=== PATIENT | female | born 1985 | race Caucasian/White ===

== ENCOUNTER 2016-10-26 03:49 | Emergency (ER) | payer BC ==
[~2016-10-26] VITALS: Ht 172.7 cm; Wt 63.5 kg
[~2016-10-26 03:49] MED LIST: ONDA4TAB46 PO; PRENTAB26 PO
[2016-10-26 03:51] VITALS: TEMP 36.5; Ht 172.7 cm; Wt 63.5 kg
[2016-10-26] MEDS ORDERED: ONDANSETRON INJ 2 MG/ML 2 ML VIAL IV STA ×2 (04:13→06:56)
[2016-10-26] MEDS ORDERED: SODIUM CHLORIDE 0.9% 1000ML 1,000 ML IV ONE ×2 (04:15)
[2016-10-26 04:45] LABS: BASO % 0.2 %; BASO ABS # 0.03 K/uL (0-0.2); COMPLETE YES; EOS % 0.7 %; HEMATOCRIT 40.6 % (37-47); IG% 0.2 %; LYMPH % 4.1 %; LYMPH ABS # 0.52 K/uL (1.2-3.4); MEAN CELL VOLUME 86.2 fL (80-100); MEAN CORPUSCULAR HEMOGLOBIN 31.4 pg (25-34); MEAN CORPUSCULAR HGB CONC 36.5 g/dl (32-36); MEAN PLATELET VOLUME 10.7 fL (7.4-10.4); MONO % 2.8 %; PLATELET COUNT 263 K/uL (130-400); RED BLOOD COUNT 4.71 M/uL (4.2-5.4); WHITE BLOOD COUNT 12.74 K/uL (4.8-10.8)
[2016-10-26 04:58] LABS: URINE APPEARANCE CLOUDY (CLEAR); URINE BILIRUBIN NEG (NEG); URINE COLOR DK YELLOW; URINE EPITHELIAL CELL AUTO >30 /lpf (0-5); URINE NITRITE NEG (NEG); URINE PH 5.5 (4.5-7.5); URINE SPECIFIC GRAVITY 1.025 (1.000-1.030); UROBILINOGEN NEG (NEG); ZZUR CULT IF INDIC CLEAN CATCH YES
[2016-10-26 05:05] LABS: BUN/CREATININE RATIO 13.9 (10-20); CREATININE 0.74 mg/dl (0.60-1.20); POTASSIUM 3.7 mmol/L (3.5-5.1)
[2016-10-26 05:05] LABS: MANUAL MICROSCOPIC REQUIRED? NO; REVIEW REQ? YES
[2016-10-26 05:27] LABS: URINE MUCUS PRESENT (NONE PRSENT)
[2016-10-26] MEDS ORDERED: ONDANSETRON HOME PACK 4MG OD TAB PO ONE (07:00)
[2016-10-26] MEDS ORDERED: ONDA4TAB10 SL (07:02)
[2016-10-26 07:05] VITALS: BP 90/44; PULSE 80; O2SAT 98
--- NOTE | 2016-10-26 21:26 | EMERGENCY ROOM VISIT NOTE ---
History First contact with patient: 04:02 Chief Complaint: DIARRHEA Stated Complaint: DIARRHEA,THROWING UP-14 WKS Nursing Triage Summary: c/o n/v and diarrhea . diarrhea at noon and n/v at 2300. History of Present Illness The patient is a 31 year old female who presents to the Emergency Room with complaints of nausea and vomiting for the past 5 hours. The patient is 14 weeks , and the has been uncomplicated to this point. The patient has been with several intermittent episodes of diarrhea for about the past 12 hours. She is having some epigastric abdominal discomfort that does improve with vomiting. She is not having lower abdominal pain, vaginal drainage , discharge, or bleeding. No lightheadedness or dizziness. She has not taken anything [id number] for her symptoms. She rates her discomfort a 5/10. This is her third with one healthy delivery and one spontaneous miscarriage. Review of Systems More than 10 systems were reviewed and otherwise negative with the exception of history of present illness. Past Medical/Surgical History Medical Problems: (1) Miscarriage Family History FH: cancer Social History Smoking Status: Never Smoker Alcohol Use: occasionally Drug Use: none Marital Status: Occupation Status: employed Current/Historical Medications Scheduled Multivit/Min/Iron/Fol Ac/Pren ( Vitamin), 1 TAB PO DAILY Ondasetron Odt (Zofran Odt), 4 MG SL Q6H Allergies Coded Allergies: Penicillins (Unverified Allergy, Unknown, NAUSEA/ VOMITING, 10/26/16) Uncoded Allergies: SEAFOOD (Adverse Reaction, Mild, GI SYMPTOMS, 10/26/14) Physical Exam Vital Signs Date Time Temp Pulse Resp B/P Pulse Ox O2 Delivery O2 Flow Rate FiO2 10/26/16 07:05 80 16 90/44 98 Room Air 10/26/16 05:31 88 18 94/52 98 Room Air 10/26/16 03:51 36.5 108 20 124/83 98 Room Air Pain Rating (0-10): 0 Physical Exam VITALS: Vitals are noted on the nurse's note and reviewed by myself. Vital signs stable. GENERAL: Well-developed, well-nourished, white female, who is in no acute distress and resting comfortably. Patient is cooperative with the examination. HEAD: Normocephalic atraumatic. MOUTH: Mucous membranes dry. Tonsils are not enlarged. Pharynx without erythema, blood, or exudate. Uvula midline. Airway patent. NECK: Supple without nuchal rigidity. No lymphadenopathy. No thyromegaly. Cervical spine is nontender. HEART: Regular rate and rhythm without murmurs gallops or rubs. LUNGS: Clear to auscultation bilaterally without wheezes, rales or rhonchi. No retractions or accessory muscle use. ABDOMEN: Positive normal bowel sounds x 4. Soft, nontender, without masses or organomegaly. No guarding or rebound tenderness. MUSCULOSKELETAL: No muscle atrophy, erythema, or edema noted. Full range of motion without joint tenderness in all extremities. Medical Decision & Procedures Laboratory Results 10/26/16 04:08 Red Blood Count 4.71, Mean Corpuscular Volume 86.2, Mean Corpuscular Hemoglobin 31.4, Mean Corpuscular Hemoglobin Concent 36.5, Mean Platelet Volume 10.7, Neutrophils (%) (Auto) 92.0, Lymphocytes (%) (Auto) 4.1, Monocytes (%) (Auto) 2.8, Eosinophils (%) (Auto) 0.7, Basophils (%) (Auto) 0.2, Neutrophils # (Auto) 11.71, Lymphocytes # (Auto) 0.52, Monocytes # (Auto) 0.36, Eosinophils # (Auto) 0.09, Basophils # (Auto) 0.03 10/26/16 04:08 Test 10/26/16 04:08 10/26/16 04:44 White Blood Count 12.74 K/uL (4.8-10.8) Red Blood Count 4.71 M/uL (4.2-5.4) Hemoglobin 14.8 g/dL (12.0-16.0) Hematocrit 40.6 % (37-47) Mean Corpuscular Volume 86.2 fL (80-100) Mean Corpuscular Hemoglobin 31.4 pg (25-34) Mean Corpuscular Hemoglobin Concent 36.5 g/dl (32-36) Platelet Count 263 K/uL (130-400) Mean Platelet Volume 10.7 fL (7.4-10.4) Neutrophils (%) (Auto) 92.0 % Lymphocytes (%) (Auto) 4.1 % Monocytes (%) (Auto) 2.8 % Eosinophils (%) (Auto) 0.7 % Basophils (%) (Auto) 0.2 % Neutrophils # (Auto) 11.71 K/uL (1.4-6.5) Lymphocytes # (Auto) 0.52 K/uL (1.2-3.4) Monocytes # (Auto) 0.36 K/uL (0.11-0.59) Eosinophils # (Auto) 0.09 K/uL (0-0.5) Basophils # (Auto) 0.03 K/uL (0-0.2) RDW Standard Deviation 39.6 fL (36.4-46.3) RDW Coefficient of Variation 12.5 % (11.5-14.5) Immature Granulocyte % (Auto) 0.2 % Immature Granulocyte # (Auto) 0.03 K/uL (0.00-0.02) Anion Gap 10.0 mmol/L (3-11) Est Creatinine Clear Calc Drug Dose 109.4 ml/min Estimated GFR () 124.2 Estimated GFR (Non- 107.2 BUN/Creatinine Ratio 13.9 (10-20) Calcium Level 9.0 mg/dl (8.5-10.1) Total Bilirubin 0.6 mg/dl (0.2-1) Aspartate Amino Transf (AST/SGOT) 9 U/L (15-37) Alanine Aminotransferase (ALT/SGPT) 12 U/L (12-78) Alkaline Phosphatase 39 U/L (45-117) Total Protein 7.7 gm/dl (6.4-8.2) Albumin 3.9 gm/dl (3.4-5.0) Globulin 3.8 gm/dl (2.5-4.0) Albumin/Globulin Ratio 1.0 (0.9-2) Lipase 179 U/L (73-393) Urine Color DK YELLOW Urine Appearance CLOUDY (CLEAR) Urine pH 5.5 (4.5-7.5) Urine Specific [place] 1.025 (1.000-1.030) Urine Protein NEG (NEG) Urine Glucose (UA) NEG (NEG) Urine Ketones TRACE (NEG) Urine Occult Blood NEG (NEG) Urine Nitrite NEG (NEG) Urine Bilirubin NEG (NEG) Urine Urobilinogen NEG (NEG) Urine Leukocyte Esterase SMALL (NEG) Urine WBC (Auto) 5-10 /hpf (0-5) Urine RBC (Auto) 0-4 /hpf (0-4) Urine Hyaline Casts (Auto) 1-5 /lpf (0-5) Urine Epithelial Cells (Auto) >30 /lpf (0-5) Urine Bacteria (Auto) 1+ (NEG) Urine Renal Epithelial Cells /lpf (0-5) Urine Crystals CALCIUM OXALATE (NONE Urine Pathogenic Casts /lpf (0) Urine Mucus PRESENT (NONE PRSENT) Urine Yeast (Auto) (NONE PRSENT) Medications Administered Medications (Trade) Dose Ordered Sig/Cynthia Route Start Time Stop Time Status Last Admin Dose Admin Sodium Chloride 1,000 ml @ 999 mls/hr Q1H1M ONCE IV 10/26/16 04:15 10/26/16 05:15 DC 10/26/16 04:35 999 MLS/HR Sodium Chloride (Nss 1000ml) 1,000 ml @ 999 mls/hr Q1H1M ONCE IV 10/26/16 04:15 10/26/16 05:15 DC 10/26/16 04:35 999 MLS/HR Ondansetron HCl (Zofran Inj) 4 mg NOW STAT IV 10/26/16 04:13 10/26/16 04:22 DC 10/26/16 04:35 4 MG Ondansetron HCl (Zofran Inj) 4 mg NOW STAT IV 10/26/16 06:56 10/26/16 06:57 DC 10/26/16 07:03 4 MG Ondansetron HCl (ZOFRAN ODT 4MG Home Pack) 1 homepack UD ONCE PO 10/26/16 07:00 10/26/16 07:01 DC 10/26/16 07:03 1 HOMEPACK ED Course Physical exam and history were performed. Nursing notes and EMR were reviewed. Patient appears to have nausea, vomiting, and diarrhea for the past half day. The patient does appear likely dehydrated on examination. IV access was established and labs were obtained. The patient was hydrated with 2 L normal saline. She was given IV Zofran for her symptoms. I did offer her pain medication, but she declined. heart tones were checked and were 165 bpm. The patient's blood work is as above and was reviewed. She does have a slightly elevated white blood cell count, which is felt to be from her vomiting. She does not have a significant anemia, bandemia, or gross electrolyte imbalance. Lipase and transaminases are nondiagnostic. Urine is somewhat contaminated, but could also be signs of an early infection. The patient states that she has had similar urine studies in the past, and she would like to wait for culture before starting antibiotics. This does appear reasonable. I did ask the patient to provide a stool sample, but she was not able to do so over the course of several hours here in the department. On multiple re-evaluations the patient was found to be sleeping quite comfortably. She was able to stand and go to the bathroom without difficulty. She did not have lightheadedness or dizziness. Repeat abdominal examination did not show any worsening or evolution of her pain. I discussed the case with my attending physician, Dr. Hernandez, and overall we feel the patient is stable for discharge home. I do not suspect a miscarriage as the cause of her abdominal discomfort. I feel her epigastric discomfort is from the vomiting itself. The vomiting is likely from a viral or foodborne etiology. I will provide the patient a course of Zofran for home use. I requested that she follow with her primary care physician for further care and management. She was otherwise invited back to the ER with any new, worsening, or concerning symptoms. She was pleased with plan of care and voiced understanding. The chart was completed utilizing The [employer] Voice Recognition Software. Grammatical errors, random word insertions, pronoun errors, and incomplete sentences are an occasional consequence of this system due to software limitations, ambient noise, and hardware issues. Any formal questions or concerns about the content, text, or information contained within the body of this dictation should be directly addressed to the provider for clarification. . Medical Decision Differential diagnosis: Etiologies such as gastroenteritis, food borne illness, infections, appendicitis , diverticulitis, inflammatory bowel disease, obstruction, GI bleed, biliary pathology, as well as others were entertained. Impression Primary Impression: Nausea and vomiting during prior to 22 weeks gestation Departure Information Dispostion Home / Self-Care Condition GOOD Prescriptions Ondasetron Odt (ZOFRAN ODT) 4 Mg Tab 4 MG SL Q6H for Nausea, #12 TAB Prov: Justin Chavez PA-C 10/26/16 Forms HOME CARE DOCUMENTATION FORM, IMPORTANT VISIT INFORMATION Patient Instructions My [facility] Additional Instructions You were seen and evaluated today on an emergency basis only. This is not a substitute for, or an effort to provide, complete comprehensive medical care. It is not possible to recognize and treat all injuries or illnesses in a single emergency department visit. For this reason it is recommended that you followup with your primary care physician next 2-3 days with any ongoing or persistent symptoms. Zofran 1 tablet every 6 hrs as needed for nausea. Drink fluids and remain well hydrated You are welcome to return to the emergency department anytime with new, worsening, or concerning symptoms.
== END 2016-10-26 07:27 | disposition home or self-care (01) ==
LOC: C.EDB 03:50
DX: O21.9 Vomiting of pregnancy, unspecified (principal); Z3A.14 14 weeks gestation of pregnancy

== ENCOUNTER 2017-01-11 12:27 | Emergency (ER) | payer BC ==
[~2017-01-11] VITALS: Ht 172.7 cm; Wt 69.9 kg
[~2017-01-11 12:27] MED LIST changes: +ONDA4TAB10 SL; -ONDA4TAB46 PO
[2017-01-11 12:32] VITALS: TEMP 36.7; Ht 172.7 cm; Wt 69.9 kg
--- NOTE | 2017-01-11 12:59 | EMERGENCY ROOM VISIT NOTE ---
History Report prepared by Vickey: Lucretia Ellis Under the Supervision of: Dr. Joao Nowak M.D. First contact with patient: 12:39 Chief Complaint: BACK PAIN Stated Complaint: BULGING DISC IN LWR BACK,BACK PAIN 25 WKS History of Present Illness The patient is a 31 year old female who presents to the Emergency Room with complaints of worsening back pain that started 3 days ago. She has been unable to relieve the pain with Tylenol. The patient states that she has a history of bulging discs, but has never received a MRI or a CT scan. She states that she woke up with the pain 3 days ago. In the past, the patient has relied on a chiropractor to treat her bulging discs. However, she went to her chiropractor 2 days ago, yesterday, and today, but the pain is still getting worse. She is also experiencing trouble ambulating secondary to the pain. The patient states that she is also experiencing tingling and intermittent numbness in her left leg. She denies fevers, chills, and any problems urinating or with bowel movements. The patient adds that she is 25 weeks and she is able to feel the baby move. The patient states that this is her second baby. She states that she is also experiencing abdominal soreness, but she is unsure of if that is secondary to her or from ambulating abnormally secondary to the back pain. She called [facility] earlier today and they recommended coming into the ED. Source of History: patient Onset: 3 days ago Position: back Timing: worsening Modifying Factors (Relieving): other (None) Associated Symptoms: + abdominal pain (soreness), No chills, No fevers Note: trouble ambulating, no problems urinating or with bowel movements Review of Systems All systems have been listed, reviewed, and are negative other than those previously mentioned. Please see Additional Medical History Sheet. Past Medical & Surgical Medical Problems: (1) Miscarriage Family History FH: cancer Social History Smoking Status: Never Smoker Alcohol Use: occasionally Drug Use: none Marital Status: Occupation Status: employed Current/Historical Medications Scheduled Cetirizine (Zyrtec), 10 MG PO DAILY Multivit/Min/Iron/Fol Ac/Pren ( Vitamin), 1 TAB PO DAILY Scheduled PRN Hydrocodone/Acetaminophen 5MG/325MG ([place] 5MG/325MG), 1-2 TABLETS PO Q4 PRN for back pain Allergies Coded Allergies: Penicillins (Unverified Allergy, Unknown, NAUSEA/ VOMITING, 10/26/16) Uncoded Allergies: SEAFOOD (Adverse Reaction, Mild, GI SYMPTOMS, 10/26/14) Physical Exam Vital Signs Date Time Temp Pulse Resp B/P Pulse Ox O2 Delivery O2 Flow Rate FiO2 01/11/17 16:48 69 18 117/65 100 Room Air 01/11/17 14:45 73 20 123/61 97 Room Air 01/11/17 13:11 78 18 125/65 99 Room Air 01/11/17 12:32 36.7 84 18 113/69 99 Room Air Physical Exam GENERAL: Patient awake, alert, oriented x 3. Patient follows commands. Patient does not appear toxic. Patient is adequately hydrated and well- nourished. SKIN: No erythema, pallor, cyanosis or rash HEENT: Normal head, pupils equal, reactive to light and accommodation. LUNGS: Clear to auscultation. No wheezes, no rales, no rhonchi. HEART: No murmurs. No gallops. No rubs ABDOMEN: No masses, no rebound, no hepatomegaly or splenomegaly. EXTREMITIES: Straight leg raising positive on the left at 45 degrees. Negative straight leg raise on the right. Deep tendon reflexes are brisk and equal bilaterally at the patella. Motor, sensory, and circulatory function are all intact distally. No signs of trauma. No pedal or pretibial edema. No calf or thigh tenderness. NEUROLOGIC: Cranial nerves II-XII within normal limits. No gross motor sensory function deficits. Medical Decision & Procedures ER Provider Diagnostic Interpretation: MRI results are interpretations by the radiologist and per my review. MRI OF THE LUMBAR SPINE WITHOUT IV CONTRAST CLINICAL HISTORY: Low back pain. . COMPARISON STUDY: No priors. TECHNIQUE: MRI of the lumbar spine is performed utilizing various T1 and T2-weighted sequences in the axial and sagittal planes. IV contrast was not administered for this examination. FINDINGS: Lumbar spine: Vertebral body height and alignment are maintained throughout the lumbar spine. Normal marrow signal intensity is preserved throughout the visualized bony structures. Small hemangiomas are noted in the bodies of L4 and L5. The transverse and spinous processes are intact as visualized. There is no evidence of spondylolysis. Intervertebral discs: There is mild degenerative disc desiccation. The disc heights appear preserved. Spinal cord: The visualized spinal cord is normal in morphology and signal intensity. The conus medullaris terminates at the level of L1. The nerve roots of the cauda equina are normal in morphology. L1-L2: Unremarkable. L2-L3: Unremarkable. L3-L4: There is broad-based posterior disc bulge with annular fissure. There is only minimal acquired compromise of the central canal at this level. The minimum AP diameter measures up to 9 mm. The neural foramina are patent. L4-L5: There is broad-based posterior disc bulge with annular fissure. In conjunction with hypertrophy of the ligamentum flavum, there is mild acquired compromise of the central canal at this level. The minimum AP diameter measures up to 7.5 mm. There is mild bilateral subarticular stenosis. The neural foramina are patent. L5-S1: There is a posterior disc bulge with annular fissure. The central canal and neural foramina are patent. Facet arthropathy is of no consequence. Sacrum: The visualized sacrum is normal in morphology and signal intensity. Soft tissues: The paraspinous soft tissues are within normal limits. The gravid uterus is partially imaged. IMPRESSION: 1. No acute bony abnormality is identified. 2. Degenerative disc disease as above. There is only mild acquired compromise of the central canal at L3-L4 and L4-L5. See discussion for detailed level by level analysis. No large disc herniation is seen. Dictated: 01/11/2017 2:32 PM Transcribed: 01/11/2017 2:56 PM Eric Electronically signed by: Wallace Calle M.D. 01/11/2017 2:57 PM Dictated Date/Time: 01/11/2017 2:32 PM Medications Administered Medications (Trade) Dose Ordered Sig/Cynthia Route Start Time Stop Time Status Last Admin Dose Admin Morphine Sulfate (MoRPHine SULFATE INJ) 8 mg ONE ONCE IM 01/11/17 13:00 01/11/17 13:01 DC 01/11/17 13:07 8 MG Ondansetron HCl (Zofran Odt) 4 mg PRN PRN SL 01/11/17 13:00 01/11/17 17:16 DC 01/11/17 15:21 4 MG ED Course 1242: Past medical records reviewed. The patient was evaluated in room B12. A complete history and physical examination was performed. 1300: Ordered Zofran Odt 4 mg SL, Morphine Sulfate 8 mg IM 1606: I reassessed and updated the patient. I informed her that I have a call out to her [facility]. 1617: Discussed the patient's case with Dr. Roa - [facility]. He suggested Tylenol 3s or Vicodin for the patient's pain. He also said to have the patient call tomorrow morning to get a sooner appointment in the office. 1625: Upon reevaluation, the patient appeared to have improvement of her symptoms. I discussed today's findings with her. She verbalized agreement of the treatment plan. She was discharged home. Medical Decision Nurses notes reviewed. Medical history sheet reviewed. Differential diagnosis includes but is not limited to: lumbar radiculopathy, cauda equina syndrome, muscle spasm/strain, complication of . The patient has no urinary incontinence or fecal incontinence. MRI was performed to evaluate her lower back. Patient does have some bulging disks over her lower lumbar spine. I believe this is the source of her pain. She also has significant spasm. I discussed care with Dr. Roa. They will follow the patient. In the meantime the patient will be given a prescription for [place]. The patient was also instructed to use heat. [place] Drug Monitoring Program Search Results: patient reviewed within database, no issues identified Consults Time Called: 1611 Consulting Physician: Dr. Roa - [facility] Returned Call: 1617 Discussed the patient's case with Dr. Roa - [facility]. He suggested Tylenol 3s or Vicodin for the patient's pain. He also said to have the patient call tomorrow morning to get a sooner appointment in the office. Impression Primary Impression: Severe low back pain Additional Impression: Scribe Attestation The scribe's documentation has been prepared under my direction and personally reviewed by me in its entirety. I confirm that the note above accurately reflects all work, treatment, procedures, and medical decision making performed by me. Departure Information Dispostion Home / Self-Care Prescriptions Hydrocodone/Acetaminophen 5MG/325MG ([place] 5MG/325MG) Tab 1-2 TABLETS PO Q4 Y for back pain, #24 TAB PRN PAIN Prov: Joao Nowak M.D. 01/11/17 Referrals Candy Lundberg M.D. (PCP) Shiraz Roa M.D. Forms HOME CARE DOCUMENTATION FORM, IMPORTANT VISIT INFORMATION Patient Instructions Back Pain - [facility], [facility], [facility] Additional Instructions 1-2 hydrocodone every 4-6 hours as needed for severe back pain. Do not drive or operate machinery while taking hydrocodone. Apply heat to your lower back intermittently over the next 3 days. Follow-up with [facility] within the next week. Problem Qualifiers Additional Impression: Weeks of gestation: 25 weeks Qualified Codes: Z3A.25 - 25 weeks gestation of
[2017-01-11] MEDS ORDERED: MoRPHine SULFATE 10 MG/ML CARP/VIAL IM ONE (13:00)
[2017-01-11] MEDS ORDERED: ONDANSETRON 4MG OD TAB SL PRN (13:00)
[2017-01-11] MEDS ORDERED: PRENTAB26 PO (13:45)
[2017-01-11] MEDS ORDERED: CETI10TA84 PO (13:45)
--- NOTE | 2017-01-11 14:58 | DIAGNOSTIC IMAGING REPORT ---
MRI OF THE LUMBAR SPINE WITHOUT IV CONTRAST CLINICAL HISTORY: Low back pain. . COMPARISON STUDY: No priors. TECHNIQUE: MRI of the lumbar spine is performed utilizing various T1 and T2-weighted sequences in the axial and sagittal planes. IV contrast was not administered for this examination. FINDINGS: Lumbar spine: Vertebral body height and alignment are maintained throughout the lumbar spine. Normal marrow signal intensity is preserved throughout the visualized bony structures. Small hemangiomas are noted in the bodies of L4 and L5. The transverse and spinous processes are intact as visualized. There is no evidence of spondylolysis. Intervertebral discs: There is mild degenerative disc desiccation. The disc heights appear preserved. Spinal cord: The visualized spinal cord is normal in morphology and signal intensity. The conus medullaris terminates at the level of L1. The nerve roots of the cauda equina are normal in morphology. L1-L2: Unremarkable. L2-L3: Unremarkable. L3-L4: There is broad-based posterior disc bulge with annular fissure. There is only minimal acquired compromise of the central canal at this level. The minimum AP diameter measures up to 9 mm. The neural foramina are patent. L4-L5: There is broad-based posterior disc bulge with annular fissure. In conjunction with hypertrophy of the ligamentum flavum, there is mild acquired compromise of the central canal at this level. The minimum AP diameter measures up to 7.5 mm. There is mild bilateral subarticular stenosis. The neural foramina are patent. L5-S1: There is a posterior disc bulge with annular fissure. The central canal and neural foramina are patent. Facet arthropathy is of no consequence. Sacrum: The visualized sacrum is normal in morphology and signal intensity. Soft tissues: The paraspinous soft tissues are within normal limits. The gravid uterus is partially imaged. IMPRESSION: 1. No acute bony abnormality is identified. 2. Degenerative disc disease as above. There is only mild acquired compromise of the central canal at L3-L4 and L4-L5. See discussion for detailed level by level analysis. No large disc herniation is seen. Dictated: 01/11/2017 2:32 PM Transcribed: 01/11/2017 2:56 PM Eric Electronically signed by: Wallace Calle M.D. 01/11/2017 2:57 PM Dictated Date/Time: 01/11/2017 2:32 PM
[2017-01-11] MEDS ORDERED: HYDR-5688 PO (16:30)
[2017-01-11 16:48] VITALS: BP 117/65; PULSE 69; O2SAT 100
== END 2017-01-11 16:48 | disposition home or self-care (01) ==
LOC: C.EDB 12:28
DX: O26.91 Pregnancy related conditions, unspecified, first trimester (principal); Z3A.25 25 weeks gestation of pregnancy; M54.5 Low back pain; Z88.0 Allergy status to penicillin; Z91.018 Allergy to other foods; Z80.9 Family history of malignant neoplasm, unspecified

== ENCOUNTER 2017-03-10 13:08 | Outpatient (CLI) | payer BC ==
[~2017-03-10 13:08] MED LIST changes: +CETI10TA84 PO; +HYDR-5688 PO; -ONDA4TAB10 SL
[2017-03-10] MEDS ORDERED: ACETAMINOPHEN 325 MG TAB PO PRN (14:15)
[2017-03-10 15:29] LABS: MANUAL MICROSCOPIC REQUIRED? NO; REVIEW REQ? NO; URINE APPEARANCE CLEAR (CLEAR); URINE BILIRUBIN NEG (NEG); URINE COLOR YELLOW; URINE EPITHELIAL CELL AUTO 20-30 /lpf (0-5); URINE NITRITE NEG (NEG); URINE PH 6.5 (4.5-7.5); UROBILINOGEN NEG (NEG); ZZUR CULT IF INDIC CLEAN CATCH YES
== END 2017-03-10 16:05 | disposition home or self-care (01) ==
LOC: C.LD 13:08 → C.OPB 13:08
PROVIDERS: ATTEND Obstetrics & Gynecology
DX: O62.9 Abnormality of forces of labor, unspecified (principal); O26.893 Other specified pregnancy related conditions, third trimester; M51.26 Other intervertebral disc displacement, lumbar region; Z3A.33 33 weeks gestation of pregnancy

== ENCOUNTER 2017-04-21 07:55 | Inpatient (IN) | payer BC ==
[~2017-04-21] VITALS: Ht 172.7 cm; Wt 75.9 kg
[2017-04-21] MEDS ORDERED: LACTATED RINGER'S 1000ML 1,000 ML IV SCH (08:42)
[2017-04-21 09:11] VITALS: BMI 25.4; BMI 56.0
[2017-04-21 09:27] LABS: HEMATOCRIT 38.3 % (37-47); MEAN CELL VOLUME 87.6 fL (80-100); MEAN CORPUSCULAR HEMOGLOBIN 30.2 pg (25-34); MEAN CORPUSCULAR HGB CONC 34.5 g/dl (32-36); MEAN PLATELET VOLUME 10.2 fL (7.4-10.4); PLATELET COUNT 222 K/uL (130-400); RED BLOOD COUNT 4.37 M/uL (4.2-5.4); WHITE BLOOD COUNT 12.56 K/uL (4.8-10.8)
[2017-04-21] MEDS ORDERED: BUPIVACAINE 0.25% 30 ML VIAL ONE (09:52)
[2017-04-21] MEDS ORDERED: FENTANYL CITRATE INJ 50 MCG/1 ML 2 ML VIAL ONE (09:52)
[2017-04-21] MEDS ORDERED: FENTANYL 2MCG/ML ROPIV 1.25MG/ML 100ML BAG EPI ONE (09:52)
[2017-04-21] MEDS ORDERED: EpHEDrine SULFATE INJ 50 MG/ML AMP ONE (09:52)
[2017-04-21] MEDS ORDERED: NALOXONE HCL INJ 1 MG in SODIUM CHLORIDE 0.9% 1000ML 1,000 ML IV PRN (10:48)
[2017-04-21] MEDS ORDERED: LACTATED RINGER'S 1000ML 500 ML IV PRN ×2 (10:48→11:52)
[2017-04-21] MEDS ORDERED: EpHEDrine SULFATE INJ 50 MG/ML AMP IV PRN (11:00)
[2017-04-21] MEDS ORDERED: NALOXONE HCL INJ 0.4 MG/1 ML VIAL/CARP IV PRN (11:00)
[2017-04-21] MEDS ORDERED: DiphenhydrAMINE HCL 50 MG/ML VIAL IV PRN (11:00)
[2017-04-21] MEDS ORDERED: ONDANSETRON INJ 2 MG/ML 2 ML VIAL IV PRN (11:00)
[2017-04-21] MEDS ORDERED: NALBUPHINE HCL INJ 10 MG/ML AMP IV PRN (11:00)
[2017-04-21 11:32] VITALS: Ht 172.7 cm; Wt 75.9 kg
[2017-04-21] MEDS ORDERED: OXYTOCIN 30 UNITS/500ML NSS IV PRN ×2 (12:00→16:00)
[2017-04-21] MEDS: FENTANYL 2MCG/ML ROPIV 1.25MG/ML 100ML BAG EPI PRN ×3 (12:13→15:24)
[2017-04-21] MEDS ORDERED: OXYCODONE/ACETAMINOPHEN 5-325 TAB PO PRN (16:00)
[2017-04-21] MEDS ORDERED: IBUPROFEN 600 MG TAB PO PRN (16:00)
[2017-04-21] MEDS ORDERED: SUPERCREAM 0.870 % 15GM JAR EXT PRN (16:00)
[2017-04-21] MEDS ORDERED: ACETAMINOPHEN/CODEINE 300/30MG TAB PO PRN (16:00)
[2017-04-21] MEDS ORDERED: HYDROCORTISONE ACETATE 25 MG SUPP PR PRN (16:00)
[2017-04-21] MEDS ORDERED: LANOLIN OINT EXT PRN ×2 (16:00)
[2017-04-21] MEDS ORDERED: ACETAMINOPHEN 325 MG TAB PO PRN (16:00)
[2017-04-21] MEDS ORDERED: BENZOCAINE 20% AER SPR 82.5 GM CAN EXT PRN (16:00)
--- NOTE | 2017-04-21 16:04 | Vaginal Delivery Summary ---
Vaginal Delivery Summary Delivery Note live male over intact perineum ARNOLD with Apgars 9/10. Delayed cord clamping followed by cord blood and spontaneous delivery of intact placenta. No tears. EBL 200 ml. Final sponge and instrument count are correct. Mom and baby stable.
--- NOTE | 2017-04-21 16:42 | Anesthesia Procedure Note ---
Anesthesia Epidural Removal Nt Date & Time Apr 21, 2017 at 16:42 Vital Signs Pain Intensity: 4.0 Notes Mental Status: alert / awake / arousable, participated in evaluation Nausea / Vomiting: adequately controlled Pain: adequately controlled Airway Patency, RR, SpO2: stable & adequate BP & HR: stable & adequate Hydration State: stable & adequate Neuraxial Anesthesia: was administered Anesthetic Complications: no major complications apparent, pt satisfied with anesthetic care Epidural: removed without complications, with tip intact
[2017-04-21] MEDS: ACETAMINOPHEN/CODEINE 300/30MG TAB PO PRN ×2 (18:19→23:25)
[2017-04-21 18:50] VITALS: BP 120/63; PULSE 85; TEMP 36.9
[2017-04-21] MEDS: DOCUSATE SODIUM 100 MG CAP PO SCH (20:48)
[2017-04-21 23:10] VITALS: BP 111/74; PULSE 73; TEMP 36.5
[2017-04-22 03:00] VITALS: BP 116/74; PULSE 71; TEMP 36.3
[2017-04-22 07:55] VITALS: BP 113/75; PULSE 88; TEMP 36.7; O2SAT 97
[2017-04-22] MEDS ORDERED: PRENATAL VITAMIN TAB PO SCH (08:00)
[2017-04-22] MEDS ORDERED: MEASLES, MUMPS & RUBELLA VIRUS VIAL SQ. ONE (08:00)
[2017-04-22] MEDS ORDERED: FERROUS SULFATE 325 MG TAB PO SCH (08:00)
[2017-04-22] MEDS ORDERED: DIPHTHERIA/TETANUS/PERTUSSIS 0.5 ML SYR/VIAL IM. ONE (08:00)
--- NOTE | 2017-04-22 08:39 | OB/GYN Progress Note ---
[employer] Progress Note Date of Service Apr 22, 2017. Subjective conversation w/ patient, physical exam Ambulation: ambulating normally Voiding: no voiding problems Passing Gas: Yes Diet Tolerance: Regular Diet Lochia: Moderate Review of Systems Constitutional: No fever, No chills, No sweats, No weight loss, No weakness, No fatigue, No problem reported Respiratory: No cough, No sputum, No wheezing, No shortness of breath, No dyspnea on exertion, No dyspnea at rest, No hemoptysis, No problem reported Cardiac: No chest pain, No orthopnea, No PND, No edema, No claudication, No palpitations, No problem reported Breast: No see HPI, No breast lump, No change in shape, No nipple discharge, No breast pain, No problem reported Abdomen: No pain, No nausea, No vomiting, No diarrhea, No constipation, No GI bleeding, No problem reported Female : No see HPI, No dysuria, No urinary frequency, No hematuria, No incontinence, No abnormal vaginal bleeding, No vaginal discharge, No problem reported Objective Vital Signs Date Time Temp Pulse Resp B/P (MAP) Pulse Ox O2 Delivery O2 Flow Rate FiO2 04/22/17 07:55 97 Room Air 04/22/17 07:55 36.7 88 18 113/75 (88) 97 Room Air 04/22/17 03:00 36.3 71 18 116/74 (88) Room Air 04/21/17 23:10 Room Air 04/21/17 23:10 36.5 73 20 111/74 (86) Room Air 04/21/17 18:50 Room Air 04/21/17 18:50 36.9 85 18 120/63 (82) Room Air Physical Exam General Appearance: WELL-APPEARING Respiratory/Chest: chest non-tender Cardiovascular: regular rate, rhythm Abdomen: normal bowel sounds Fundus: Firm Incision Description: Clean, Dry & Intact Extremities: normal range of motion Laboratory Results Last 24 Hours Test 04/21/17 09:00 04/22/17 06:19 White Blood Count 12.56 K/uL Red Blood Count 4.37 M/uL Hemoglobin 13.2 g/dL 11.8 g/dL Hematocrit 38.3 % 36.0 % Mean Corpuscular Volume 87.6 fL Mean Corpuscular Hemoglobin 30.2 pg Mean Corpuscular Hemoglobin Concent 34.5 g/dl RDW Standard Deviation 41.5 fL RDW Coefficient of Variation 12.9 % Platelet Count 222 K/uL Mean Platelet Volume 10.2 fL Assessment and Plan Day Number: 1 Continue Routine Care: VD day #1 pt doing well d/c home tomorrow
[2017-04-22] MEDS: DOCUSATE SODIUM 100 MG CAP PO SCH (08:44)
[2017-04-22 11:45] VITALS: BP 108/72; PULSE 80; TEMP 36.5; O2SAT 98
[2017-04-22] MEDS: ACETAMINOPHEN/CODEINE 300/30MG TAB PO PRN (14:35)
[2017-04-22] MEDS ORDERED: MTR600X PO (14:48)
--- NOTE | 2017-04-22 14:49 | Discharge Instructions ---
Discharge Instructions Date of Service Apr 22, 2017. Admission Reason for Admission: R/O Labor Discharge Discharge Diagnosis / Problem: Discharge Goals Goal(s): Routine recovery after delivery Activity Recommendations Activity Limitations: resume your previous activity ACTIVITY RECOMMENDATIONS: * Gradual return to full activity over the next 2-3 weeks. * No lifting - nothing heavier than baby over the next 2-3 weeks. * Do not engage in vigorous exercise, sexual activity or sports until cleared by your physician. * Do not drive or operate any motorized equipment until cleared by your physician. * You may shower/bathe daily. BREAST CARE: If you are not breast feeding: * Wear a supportive bra 24 hours a day for one to two weeks. * Avoid stimulating your breasts and nipples as much as possible during the first few weeks after delivery. * When taking a shower, have the warm water hit your back, not breasts. * When your breasts feel full, apply ice packs. Usually three to four times a day helps ease the discomfort. * Take a mild pain medication (Tylenol/Motrin) when you are uncomfortable. If breast feeding: * Use breast milk to lubricate nipples. Lansinoh cream may be used for sore nipples. You do not need to remove cream prior to breast feeding. If using a different brand of cream, check the label for directions regarding removal of cream prior to nursing. * Wear a supportive bra. * If having problems with breasts or breast feeding, call a outside sales consultant or your health care provider. EPISIOTOMY CARE: After delivery, if you have an episiotomy (stitches), the following steps will ease discomfort and aid healing. * For the first 24 hours after delivery, place ice packs next to your episiotomy to help reduce swelling. * After the first 24 hour-period, sitz baths, either portable or in the tub, are suggested. A shower with a shower arm sprayed over the episiotomy may be comforting. * Marcela care should be done after each voiding and bowel movement. Squirt warm water from a plastic bottle over the perineum (region of the body between the anus and urinary opening) and pat dry. * Use Dermoplast to ease discomfort. Shake container. [place] directly over the episiotomy. * Place a Tucks on a clean sanitary pad next to your episiotomy. OVER THE COUNTER MEDICATION: * For discomfort or pain, you may use Acetaminophen (Tylenol), Ibuprofen (Advil ), or Naproxen (Aleve) following the package directions. * For constipation you may use Colace following the package directions. SPECIAL CARE INSTRUCTIONS: When you are discharged from the hospital, it is important for you to follow the instructions listed below: * During the first week at home, you should be able to care for yourself and your baby. In addition, the usual light household activities are encouraged. * Limit your activities to the way you feel. Do not try to clean the house or move furniture. Be sensible. * If you actively engage in sports and have done so up until the time of your delivery, you may resume these activities as soon as you feel able. This may take up to one month or even longer. Use good judgment. * Continue to take your vitamins for at least six weeks after the of your baby. * Your diet need not be limited unless you were on a special diet before your delivery. Breast-feeding mothers need around 2500 calories per day and at least 64-80 ounces of fluid per day (8 to 10 glasses). * You should eat foods from the four major food groups. Crash diets or fad diets are to be avoided. Eating lean meats, fresh fruits and vegetables, low-fat dairy products, high fiber foods and a regular exercise program, will help you get back to your pre- weight without putting your health at risk. * Constipation is sometimes a problem after delivery. Take a mild laxative as needed. If breast feeding, Milk of Magnesia is acceptable to use. You may use a suppository or Fleets enema if no episiotomy. * A daily shower or tub bath is suggested. Be sure to thoroughly and gently dry the perineum. * A bloody vaginal discharge will usually continue until around four weeks post . A small amount of bleeding may continue for as long as six weeks. Vaginal discharge changes from the bright red bleeding after delivery to pink then brownish and finally yellowish-pink before becoming white and disappearing. * Bleeding may increase with activity. Your first period may come in 4-8 weeks. If you are breast feeding, your period may be delayed even longer. * Shields (sex) can begin whenever both you and your partner feel comfortable and do not have any form of genital infection. It is recommended that you wait until after your return appointment and discuss with your physician. If you have questions, please talk to your health care practitioner. A condom should be used to prevent infection and . * Foreplay, gentle intercourse and lubrication is very important the first several times to prevent pain. A water-based lubricant such as K-Y jelly or Astroglide may be used. * Tampons may be used six weeks after delivery. * Douching should be avoided for 6 weeks after delivery. * If you have RH negative blood and your baby is RH positive, you will receive RHOGAM by injection prior to discharge. The nurse will give you a card to keep with you that has the date and place that you received RHOGAM after delivery. * During your care, you had a Rubella screen done to check for the presence of rubella antibodies in your blood. If your test was negative, you will receive a Rubella vaccine prior to discharge. This vaccine may cause a fever, soreness at the injection site and flu-like symptoms. If these symptoms persist, notify your health care practitioner. is not advised for three months after a Rubella vaccine. There is a higher chance of having a baby with defects if conceived within three months of getting the vaccine. * If you were discharged 24 hours from delivery or before 48 hours: Visiting nurses will come to your home 48 hours after discharge to assess you and your baby. The visiting nurse will meet with you while you are in the hospital to arrange a time and get directions to your home. * Verbalizes understanding of car seat law as reviewed with patient nursing. * Car Seat hand-out given and reviewed with patient by nursing. * Shaken baby information reviewed with patient by nursing. Call you doctor if: * Heavy bleeding (saturating several pads an hour) or passing clots the size of your fist. * A fever >101 degrees F (38.3 degrees C) on two occasions four hours apart and/or chills. * Unusual pain in the pelvic or vaginal areas. * "Baby Blues" lasting longer than two weeks. If you have any questions or concerns, call your health care practitioner at . FOLLOW-UP VISIT: * Please call the office at to schedule a 6 week examination. It is important you keep this appointment. * It is important for you to make arrangements for either yearly or twice yearly check-ups thereafter. . Current Hospital Diet Patient's current hospital diet: Regular OB Diet Discharge Diet Recommended Diet: Regular Diet Pending Studies Studies pending at discharge: no Medical Emergencies . Who to Call and When: Medical Emergencies: If at any time you feel your situation is an emergency, please call 911 immediately. . Non-Emergent Contact Non-Emergency issues call your: Specialist . . "Provider Documentation" section prepared by Lukas Ward. . VTE Core Measure Inpt VTE Proph given/why not?: Treatment not indicated
[2017-04-22 16:10] VITALS: BP 115/67; PULSE 71; TEMP 36.7
[2017-04-22] MEDS ORDERED: ACET-749 PO (16:23)
[2017-04-22 16:50] VITALS: BP_DIAS 67; PULSE 71; TEMP 36.7
[2017-04-22] MEDS ORDERED: BISACODYL 5 MG TABEC PO SCH (20:00)
[2017-04-23] MEDS ORDERED: BISACODYL 10 MG SUPP PR PRN (07:00)
== END 2017-04-22 17:10 | disposition home or self-care (01) | DRG 775 ==
LOC: C.LD 07:55 → C.OPB 07:55 → C.LD 08:48 → C.OPB 08:48 → C.OBG 18:42
PROVIDERS: ADMIT Obstetrics & Gynecology; ATTEND Obstetrics & Gynecology
PROC: 10E0XZZ Delivery of Products of Conception, External Approach (ICD-10-PCS; principal; 2017-04-21)
DX: O80 Encounter for full-term uncomplicated delivery (principal); Z37.0 Single live birth

== ENCOUNTER → 2017-11-01 | Outpatient (CLI) | payer OTHER ==
[~2017-11-01] MED LIST changes: +ACET-749 PO; -CETI10TA84 PO; -HYDR-5688 PO; +MTR600X PO
--- NOTE | 2017-11-01 08:08 | DIAGNOSTIC IMAGING REPORT ---
THYROID ULTRASONOGRAPHY CLINICAL HISTORY: E05.90 [id number] Thyroid [id number] COMPARISON STUDY: None FINDINGS: The right lobe of thyroid measures 53 x 20 x 19 mm. The left lobe measures 53 x 17 x 15 mm. The gland is heterogeneous and hypervascular. No focal nodules are delineated. IMPRESSION: 1. Heterogeneous hypervascular thyroid gland. This may indicate a thyroiditis 2. No focal thyroid nodules are visualized Electronically signed by: Owen Pruitt M.D. 11/01/2017 8:07 AM Dictated Date/Time: 11/01/2017 8:06 AM
== END | disposition home or self-care (01) ==
LOC: C.ULTR 07:45
PROVIDERS: ATTEND Internal Medicine Endocrinology, Diabetes & Metabolism
DX: E04.1 Nontoxic single thyroid nodule (principal); E05.90 Thyrotoxicosis, unspecified without thyrotoxic crisis or storm